=== PATIENT | male | born 1940 | race Caucasian/White ===

== ENCOUNTER 2025-08-09 09:52 | Emergency (ER) | payer MEDICARE ==
[~2025-08-09] VITALS: Ht 162.6 cm; Wt 74.4 kg
[2025-08-09] MEDS ORDERED: ACETAMINOPHEN ES 500 MG TABLET ONE (10:15)
[2025-08-09] MEDS: ACETAMINOPHEN ES 500 MG TABLET PO ONE (10:16)
[2025-08-09 14:25] VITALS: BP 109/70; TEMP 98.3; O2SAT 96
== END 2025-08-09 13:50 ==
LOC: ER 09:55
DX: S09.8XXA Other specified injuries of head, initial encounter (principal); G20.A1 Parkinson's disease without dyskinesia, without mention of fluctuations; F02.80 Dementia in other diseases classified elsewhere, unspecified severity, without behavioral disturbance, psychotic disturbance, mood disturbance, and anxiety; I10 Essential (primary) hypertension; W01.0XXA Fall on same level from slipping, tripping and stumbling without subsequent striking against object, initial encounter; Y93.89 Activity, other specified; Y92.89 Other specified places as the place of occurrence of the external cause; Y99.8 Other external cause status
CPT/HCPCS: 70450-TC; 72125-TC; 72170-TC